=== PATIENT | female | born 1995 | race Caucasian/White ===

== ENCOUNTER 2021-07-14 20:08 | Emergency (ER) | payer OTHER ==
[~2021-07-14] VITALS: Ht 152.4 cm; Wt 45.4 kg
[2021-07-14] MEDS ORDERED: METOCLOPRAMIDE HCL 10 MG/2 ML VIAL IV ONE (20:45)
[2021-07-14] MEDS ORDERED: IV NORMAL SALINE 1000 ML BAG IV ONE ×2 (20:45→22:15)
[2021-07-14] MEDS ORDERED: diphenhydrAMINE 50 MG/1 ML VIAL IV ONE (20:45)
[2021-07-14 21:09] LABS: HEMATOCRIT 42.1 % (31.2-41.9); MEAN CORPUSCULAR HEMOGLOBIN 31.9 uug (24.7-32.8); MEAN CORPUSCULAR VOLUME 94.3 fL (75.5-95.3); PLATELET COUNT (AUTO) 200 K/uL (179-408)
[2021-07-14] MEDS ORDERED: ONDANSETRON 4 MG/2 ML VIAL ONE ×2 (21:12→22:21)
[2021-07-14 21:16] LABS: CREATININE 0.9 mg/dL (0.6-1.3); POTASSIUM 3.5 mmol/L (3.5-5.1)
[2021-07-14] MEDS ORDERED: METOCLOPRAMIDE HCL 10 MG/2 ML VIAL ONE (21:17)
[2021-07-14] MEDS ORDERED: diphenhydrAMINE 50 MG/1 ML VIAL ONE (21:17)
[2021-07-14 21:21] LABS: BILIRUBIN,DIRECT 0.4 mg/dL (0.0-0.2); TOTAL PROTEIN, SERUM 7.5 g/dL (6.4-8.2)
--- NOTE | 2021-07-14 21:21 | NUR ---
Arturo davis in ED - 07/14/21 at 2154 by GUNNER Pt back to ER from CT.
[2021-07-14] MEDS ORDERED: ONDANSETRON 4 MG/2 ML VIAL IV ONE (22:15)
[2021-07-14] MEDS ORDERED: IOHEXOL 300MG/ML 100 ML INFUS..BTL ONE (22:36)
[2021-07-14] MEDS ORDERED: IV NORMAL SALINE 250 ML IV ONE (22:36)
[2021-07-14] MEDS ORDERED: SWABABLE VALVE TRANSFER SET EA MC ONE (22:36)
--- NOTE | 2021-07-14 22:54 | NUR ---
patient consented for CT with contrast,to CT via [facility] states all nausea resolved.
--- NOTE | 2021-07-14 23:25 | NUR ---
Return from CT tolerated fair, mild nausea. NS 1000cc to #[id number].Friend bedside chatting.
[2021-07-14] MEDS ORDERED: PROCHLORPERAZINE EDISYLATE 10 MG/2 ML VIAL IV ONE (23:45)
[2021-07-14] MEDS ORDERED: PROCHLORPERAZINE EDISYLATE 10 MG/2 ML VIAL ONE (23:57)
[2021-07-15] MEDS ORDERED: DICY20TA11 PO (00:25)
[2021-07-15] MEDS ORDERED: ONDA4TAB5 PO (00:25)
[2021-07-15 01:26] VITALS: BP 99/50
== END 2021-07-15 00:35 | disposition home or self-care (01) ==
LOC: ER 20:16
DX: R10.9 Unspecified abdominal pain (principal); R11.2 Nausea with vomiting, unspecified; R19.7 Diarrhea, unspecified; D72.829 Elevated white blood cell count, unspecified
CPT/HCPCS: 36415; 74177; 80048; 80076; 83690; 84702; 85025; 96361 ×2; 96374; 96375; 99285; J0780; J1200; J2405 ×2; J2765; Q9967; J7030; J7050